=== PATIENT | male | born 1955 | race Caucasian/White ===

== ENCOUNTER 2020-12-19 01:44 | Emergency (ER) | payer OTHER ==
[~2020-12-19] VITALS: Ht 170.2 cm; Wt 74.8 kg
[2020-12-19] MEDS ORDERED: NEURONTIN300 MG PO (02:06)
[2020-12-19] MEDS ORDERED: COZAAR50 MG PO (02:06)
--- OUTSIDE RECORDS SUMMARY | 2020-12-19 03:28 | XMS ---
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 Oleg has no Care Guidelines for this patient. Kat VISIT COUNT (12 MO.) 1 SUBHA Lacy TOTAL 1 NOTE: Visits indicate total known visits. ED/C VISIT TRACKING (12 MO.) 12/19/2020 01:45 [facility] [place] TYPE: Emergency COMPLAINT: - VISION PROBLEM INJURY INPATIENT VISIT TRACKING (12 MO.) No inpatient visits to display in this time frame [id number]
== END 2020-12-19 03:19 | disposition home or self-care (01) ==
LOC: ED 01:44
DX: S06.0X9A Concussion with loss of consciousness of unspecified duration, initial encounter (principal); S16.1XXA Strain of muscle, fascia and tendon at neck level, initial encounter; S50.02XA Contusion of left elbow, initial encounter; F17.200 Nicotine dependence, unspecified, uncomplicated; W01.198A Fall on same level from slipping, tripping and stumbling with subsequent striking against other object, initial encounter; Z79.899 Other long term (current) drug therapy
CPT/HCPCS: 70450; 72125; 73080; 99284-25

== ENCOUNTER 2021-01-28 21:32 | Emergency (ER) | payer OTHER ==
[~2021-01-28] VITALS: Ht 177.8 cm; Wt 74.8 kg
[~2021-01-28 21:32] MED LIST: COZAAR50 MG PO; NEURONTIN300 MG PO
--- OUTSIDE RECORDS SUMMARY | 2021-01-28 21:40 | XMS ---
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 CRITERIA MET - [facility] - 2 Visits in 30 Days CARE PROVIDERS CAT SUAREZ [facility] 12/20/2020-Current PHONE: [phone] Oleg has no Care Guidelines for this patient. Kat VISIT COUNT (12 MO.) 4 [facility]. TOTAL 4 NOTE: Visits indicate total known visits. ED/UCC VISIT TRACKING (12 MO.) 01/28/2021 21:33 [facility] [place] TYPE: Emergency COMPLAINT: - SWOLLEN LEGS 01/23/2021 19:47 [facility] [place] TYPE: Emergency COMPLAINT: - STAPLE REMOVAL 01/15/2021 10:38 [facility] [place] TYPE: Emergency COMPLAINT: - POSS UTI DIAGNOSES: - Nicotine dependence, unspecified, uncomplicated - Lower abdominal pain, unspecified - Dysuria - Unspecified abdominal pain - Other snf (current) drug therapy - Testicular pain, unspecified 12/19/2020 01:[address] 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 - Fall on same level from slipping, tripping and stumbling with subsequent striking against other object, initial encounter - Activity, walking, marching and hiking - Other wildkit [facility] area as the place of occurrence of the external cause - Cervicalgia - Strain of muscle, fascia and tendon at neck level, initial encounter - Concussion with loss of consciousness of unspecified duration, initial encounter - Other snf (current) drug therapy - Concussion without loss of consciousness, initial encounter INPATIENT VISIT TRACKING (12 MO.) No inpatient visits to display in this time frame [id number]
[2021-01-28] MEDS ORDERED: DOXYCYCLINE HY100 MG PO (22:52)
== END 2021-01-28 23:12 | disposition home or self-care (01) ==
LOC: ED 21:32
DX: L03.116 Cellulitis of left lower limb (principal); L03.115 Cellulitis of right lower limb; F17.200 Nicotine dependence, unspecified, uncomplicated; Z79.899 Other long term (current) drug therapy
CPT/HCPCS: 80053; 81001; 83880; 85025; 99283

== ENCOUNTER 2021-08-31 17:12 | Emergency (ER) | payer OTHER ==
[~2021-08-31] VITALS: Ht 177.8 cm; Wt 80.4 kg
[~2021-08-31 17:12] MED LIST changes: +DOXYCYCLINE HY100 MG PO
[2021-08-31] MEDS ORDERED: VALIUM2 MG PO (17:27)
[2021-08-31] MEDS ORDERED: NARCAN4 MG NAS (19:39)
== END 2021-08-31 19:44 | disposition home or self-care (01) ==
LOC: ED 17:12
DX: T40.2X1A Poisoning by other opioids, accidental (unintentional), initial encounter (principal); F17.200 Nicotine dependence, unspecified, uncomplicated; Z79.899 Other long term (current) drug therapy
CPT/HCPCS: 36415; 80053; 85025; 96374; 99284-25; J2405; J7030

== ENCOUNTER 2023-03-17 12:02 | Emergency (ER) | payer OTHER ==
[~2023-03-17] VITALS: Ht 177.8 cm; Wt 76.8 kg
[~2023-03-17 12:02] MED LIST changes: +NARCAN4 MG NAS; +VALIUM2 MG PO
--- OUTSIDE RECORDS SUMMARY | 2023-03-17 12:07 | XMS ---
PreManage Notification: LAITH BACON Security Wellness Coach Events No recent Security Events currently on file CRITERIA MET - [facility] CARE PROVIDERS DANIELA [facility] 12/20/2020-Current PHONE: Unknown -Yosvany- Dentist: Critical Care Paramedic [facility] PHONE: [phone] MONAE WESTON Physician Alkylation Operator [facility] PHONE: [phone] Oleg has no Care Guidelines for this patient. E.D. VISIT COUNT (12 MO.) 3 [facility] 1 [place]HA [place] [facility] TOTAL 5 NOTE: Visits indicate total known visits. ED/UCC VISIT TRACKING (12 MO.) 03/17/2023 12:04 [facility] [place] [facility] [place] TYPE: Emergency COMPLAINT: - SOB, L ARM/BACK PAIN, DIZZY, LEGS NUMB, ITCHY 07/18/2022 12:39 [facility] [place] [facility] DIAGNOSES: - Cough - Rash 07/06/2022 10:35 [facility] [employer] [place] TYPE: Emergency DIAGNOSES: - Zoster without complications - BACK PAIN 06/23/2022 12:27 [facility] [employer] [place] TYPE: Emergency DIAGNOSES: - Acute cough - Bronchitis, not specified as acute or chronic - Zoster without complications - Chest pain; cough 06/09/2022 09:53 [facility] [place] TYPE: Emergency DIAGNOSES: - COVID-19 - Nausea with vomiting, unspecified - VOMITING INPATIENT VISIT TRACKING (12 MO.) No inpatient visits to display in this time frame [email or web address]
[2023-03-17] MEDS ORDERED: COZAAR50 MG PO (13:14)
[2023-03-17] MEDS ORDERED: ELIMITE60 GM TOP (13:14)
[2023-03-17] MEDS ORDERED: NARCAN4 MG NAS (13:17)
[2023-03-17 13:31] VITALS: BP 146/91
== END 2023-03-17 13:20 | disposition home or self-care (01) ==
LOC: ED 12:02
DX: S30.810A Abrasion of lower back and pelvis, initial encounter (principal); S40.212A Abrasion of left shoulder, initial encounter; S40.211A Abrasion of right shoulder, initial encounter; I10 Essential (primary) hypertension; L30.9 Dermatitis, unspecified; X58.XXXA Exposure to other specified factors, initial encounter; F17.200 Nicotine dependence, unspecified, uncomplicated; Z79.899 Other long term (current) drug therapy
CPT/HCPCS: 99283

== ENCOUNTER 2025-02-03 11:01 | Emergency (ER) | payer OTHER ==
[~2025-02-03] VITALS: Ht 177.8 cm; Wt 64.1 kg
[~2025-02-03 11:01] MED LIST changes: +ELIMITE60 GM TOP
--- OUTSIDE RECORDS SUMMARY | 2025-02-03 11:08 | XMS ---
PreManage Notification: LAITH BACON Security Trust Mail Clerk Events No recent Security Events currently on file CRITERIA MET - [facility] - 2 Visits in 30 Days CARE PROVIDERS [place] Aranda Community Health Worker 05/05/2023-Current PHONE: [phone] CAT SUAREZ [facility] 12/20/2020-Current PHONE: Unknown -, [facility] Dentist: Uat Tester Current [place] PHONE: [phone] - [facility] Dentist: Uat Tester Current [place] PHONE: [phone] MONAE WESTON Physician Assistant Marlene WARD PHONE: [phone] [facility] \[facility] ([facility]) <UNAVAIL> PHONE: [phone] Oleg has no Care Guidelines for this patient. Kat VISIT COUNT (12 MO.) 3 [facility] [place] [address] SUBHA Lacy TOTAL 5 NOTE: Visits indicate total known visits. ED/UCC VISIT TRACKING (12 MO.) 02/03/2025 11:02 [facility] [place] TYPE: Emergency COMPLAINT: - FACIAL INJURY 02/02/2025 10:57 SUB[facility] [place] [place] TYPE: Emergency COMPLAINT: - FACE INJURY 11/13/2024 13:18 [facility] [place] TYPE: Emergency DIAGNOSES: - Bronchitis, not specified as acute or chronic - Chronic obstructive pulmonary disease with (acute) exacerbation - Other viral infections of unspecified site - BACK PAIN LUNG PROBLEM 03/07/2024 23:42 [facility] [place] TYPE: Emergency DIAGNOSES: - Chronic obstructive pulmonary disease with (acute) exacerbation - CHEST PAIN 02/10/2024 09:52 [facility] [place] TYPE: Emergency DIAGNOSES: - Chronic obstructive pulmonary disease, unspecified - POSS PNEUMONIA INPATIENT VISIT TRACKING (12 MO.) No inpatient visits to display in this time frame [id number]
[2025-02-03 14:00] VITALS: BP 122/78
== END 2025-02-03 14:05 | disposition home or self-care (01) ==
LOC: ED 11:01
DX: S02.31XA Fracture of orbital floor, right side, initial encounter for closed fracture (principal); S02.19XA Other fracture of base of skull, initial encounter for closed fracture; S02.40EA Zygomatic fracture, right side, initial encounter for closed fracture; I10 Essential (primary) hypertension; F17.200 Nicotine dependence, unspecified, uncomplicated; Z79.899 Other long term (current) drug therapy; W22.8XXA Striking against or struck by other objects, initial encounter
CPT/HCPCS: 70486; 99283-25